=== PATIENT | male | born 1975 | race Caucasian/White ===

== ENCOUNTER 2016-12-26 17:59 | Observation (INO) | payer OTHER ==
[2016-12-26 18:26] LABS: HEMOGLOBIN 15.3 gm/dl (14.0-17.5); RED BLOOD COUNT 5.04 M/UL (4.20-5.50); WHITE BLOOD COUNT 11.7 K/UL (4.5-11.0)
[2016-12-26 18:59] LABS: BUN/CREATININE RATIO 19 (0-10)
[2016-12-27 06:15] LABS: BUN/CREATININE RATIO 24 (0-10)
[2016-12-27] MEDS ORDERED: ASPIRIN EC81 MG PO (16:20)
[2016-12-27] MEDS ORDERED: NITROSTAT 0.40.4 MG SL (16:21)
[2016-12-27] MEDS ORDERED: LIPITOR TAB 2020 MG PO (16:21)
[2016-12-27] MEDS ORDERED: METOPROLOL TART25 MG PO (16:22)
== END 2016-12-27 16:51 | disposition home or self-care (01) ==
LOC: ER1 17:59 → ZEROF 20:45 → MED SURG 4 20:45
PROVIDERS: Emergency Medicine; ADMIT Hospitalist
DX: R07.9 Chest pain, unspecified (principal); I10 Essential (primary) hypertension; E78.5 Hyperlipidemia, unspecified; F17.210 Nicotine dependence, cigarettes, uncomplicated; Z79.82 Long term (current) use of aspirin; Z79.899 Other long term (current) drug therapy; Z82.49 Family history of ischemic heart disease and other diseases of the circulatory system
CPT/HCPCS: ECHO; 36415; 71010; 71020; 78452; 80048; 80053; 80061; 82550; 82553; 83874; 84484; 85025; 93005; 93017; 93306; 99285; A9502; G0378